=== PATIENT | male | born 1965 | race Caucasian/White ===

== ENCOUNTER 2017-02-26 11:19 | Emergency (ER) | payer OTHER ==
[~2017-02-26] VITALS: Ht 170.2 cm; Wt 80.8 kg
[2017-02-26 11:46] VITALS: Ht 170.2 cm; Wt 80.8 kg
[2017-02-26 14:41] VITALS: BP 139/83
== END 2017-02-26 14:41 | disposition home or self-care (01) ==
LOC: ED 11:19
DX: J11.1 Influenza due to unidentified influenza virus with other respiratory manifestations (principal)